=== PATIENT | male | born 1960 | race Hispanic/Latino ===

== ENCOUNTER 2017-03-30 00:16 | Emergency (ER) | payer SELFPAY ==
[~2017-03-30] VITALS: Ht 180.3 cm; Wt 88.5 kg
--- NOTE | 2017-03-30 00:23 | ED AMS/SEIZURE/WEAK/DIZZY ---
History of Present Illness General Chief Complaint: General Adult Stated Complaint: "BIBA PER EMS UNRESPONSIVE" Source: patient Exam Limitations: clinical condition Vital Signs & Intake/Output Vital Signs & Intake/Output Vital Signs Date Time Temp Pulse Resp B/P B/P Pulse O2 O2 Flow FiO2 Mean Ox Delivery Rate 03/30 0502 97.8 81 18 138/63 96 Room Air 03/30 0038 95 Nasal 2.0L Cannula 03/30 0019 97.2 95 18 137/74 93 Room Air Allergies Coded Allergies: No Known Allergies (03/30/17) Reconcile Medications Naloxone HCl (Narcan) 4 MG/ACTUATION SPRAY 1 SPRAY IN X1 PRN OVERDOSE CALL 911 IMMEDIATELY IF SUSPECTED OVERDOSE. Triage Nurses Notes Reviewed? yes Onset: Abrupt Duration: minute(s): Timing: single episode today Injury Environment: home Severity: moderate Modifying Factors: Improves With: medication. Associated Symptoms: hypopnea HPI: 56 yo gentleman presents after hypopnea and cyanosis. Per the medics, "He was found by his sister unresponsive... He was very cyanotic when we got there... .We were about to intubate him, but then we gave narcan 2mg iv and he woke right up." He notes that he got "2 pills... a muscle relaxer... on the street" which he took prior to becoming unresponsive. Past History Travel History Traveled to [place] past 21 day No Medical History Any Pertinent Medical History? see below for history Surgical History Surgical History: unobtainable Family History Hx Contributory? No Review of Systems Review of Systems Constitutional: Reports: no symptoms. EENTM: Reports: no symptoms. Respiratory: Reports: no symptoms. Cardiovascular: Reports: no symptoms. GI: Reports: no symptoms. Genitourinary: Reports: no symptoms. Musculoskeletal: Reports: no symptoms. Skin: Reports: no symptoms. Neurological/Psychological: Reports: no symptoms. Hematologic/Endocrine: Reports: no symptoms. Immunologic/Allergic: Reports: no symptoms. All Other Systems: Reviewed and Negative Physical Exam Physical Exam General Appearance: well developed/nourished, no apparent distress Head: atraumatic, normal appearance Eyes: Bilateral: normal appearance, PERRL, EOMI. Ears, Nose, Throat: normal pharynx, normal ENT inspection, hearing grossly normal Neck: normal inspection, supple, full range of motion Respiratory: normal breath sounds, chest non-tender, no respiratory distress, quiet respiration, lungs clear Cardiovascular: regular rate/rhythm Gastrointestinal: normal bowel sounds, soft, non-tender, no organomegaly Back: normal inspection, normal range of motion Extremities: normal range of motion Neurologic/Psych: no motor/sensory deficits, awake, alert, oriented x 3 Skin: intact, normal color, warm/dry Core Measures ACS in differential dx? No CVA/TIA Diagnosis: No Severe Sepsis Present: No Septic Shock Present: No Progress Differential Diagnosis: OVERDOSE VS SYNCOPE VS OTHER. Plan of Care: Orders Procedure Date/time Status EKG 03/30 55 Active TROPONIN LEVEL 03/30 54 Complete URINE DRUG SCREEN FOR ER ONLY 03/30 50 Complete ETHANOL 03/30 50 Complete COMPREHENSIVE METABOLIC PANEL 03/30 50 Complete CBC WITHOUT DIFFERENTIAL 03/30 50 Complete Laboratory Tests 03/30/17 0218: Urine Opiates Screen > 4000.00 H, Methadone Screen < 40, Barbiturate Screen < 60, Ur Phencyclidine Scrn < 6.00, Amphetamines Screen < 100, U Benzodiazepines Scrn < 85, Urine Cocaine Screen < 50, Urine Cannabis Screen < 5.00 03/30/1754: Troponin I Cancelled 03/30/1753: Anion Gap 13, Estimated GFR > 60, BUN/Creatinine Ratio 21.0, Glucose 179 H, Calcium 8.6, Total Bilirubin 0.3, AST 34, ALT 52, Alkaline Phosphatase 103, Troponin I < 0.01, Total Protein 7.2, Albumin 4.2, Globulin 3.0, Albumin/ Globulin Ratio 1.4, CBC w Diff NO MAN DIFF REQ, RBC 4.84, MCV 83.0, MCH 27.8, RDW 14.0, MPV 8.7, Gran % 53.5, Lymphocytes % 38.0, Monocytes % 6.0, Eosinophils % 2.0, Basophils % 0.5, Absolute Granulocytes 4.7, Absolute Lymphocytes 3.3, Absolute Monocytes 0.5, Absolute Eosinophils 0.2, Absolute Basophils 0, PUBS MCHC 33.5, Serum Alcohol < 10.0 Diagnostic Imaging: Viewed by Me: Radiology Read. Discussed w/RAD: Radiology Read. Initial ED EKG: normal axis, normal intervals, normal p-waves, normal QRS complex, normal sinus rhythm Departure Departure Disposition: HOME OR SELF CARE Condition: Stable Clinical Impression Primary Impression: Opioid overdose Departure Forms: Customer Survey General Discharge Information Prescriptions: Current Visit Scripts Naloxone HCl (Narcan) 1 SPRAY IN X1 PRN OVERDOSE #1 KIT CALL 911 IMMEDIATELY IF SUSPECTED OVERDOSE. Comments 03/30/17, 5:03am.... pt monitored for nearly 5 hours in the ED. He is stable, awake and alert, responding appropriately to questions. He denies SI/HI/ Hallucinations. He would like to go home. I discussed with him the risks of street drugs. I prescribed Narcan for him and instructed him how it should be administered in case of overdose. Pt safe for discharge. 03/30/17, 5:34AM... pt ambulated out ED in company of his sister. Critical Care Note Critical Care Note Critical Care Time: 30-74 min
[2017-03-30] MEDS ORDERED: NARCAN4 MG IN (00:51)
[2017-03-30 01:12] LABS: ABSOLUTE BASOPHIL COUNT 0 /CUMM (0.0-0.2); ABSOLUTE EOSINOPHIL COUNT 0.2 /CUMM (0.0-0.7); ABSOLUTE GRANULOCYTE CT 4.7 /CUMM (1.4-6.5); ABSOLUTE LYMPH COUNT 3.3 /CUMM (1.2-3.4); ABSOLUTE MONOCYTE COUNT 0.5 /CUMM (0.10-0.60); BASOPHIL % 0.5 % (0.0-2.0); GRANULOCYTE % 53.5 % (42.2-75.2); HEMATOCRIT 40.2 % (42-52); MEAN CORPUSCULAR HGB 27.8 PG (27.0-31.0); MEAN CORPUSCULAR HGB CONC 33.5 G/DL (33.0-37.0); MEAN PLATELET VOLUME 8.7 FL (7.4-10.4); PLATELET COUNT 237 /CUMM (130-400); RED BLOOD CELL CT 4.84 /CUMM (4.70-6.10); WHITE BLOOD CELL COUNT 8.7 /CUMM (4.8-10.8)
--- NOTE | 2017-03-30 03:10 | RADIOLOGY REPORT ---
EXAMINATION: XR PORTABLE CHEST CLINICAL INFORMATION: Hypoxia. COMPARISON: No relevant prior imaging. TECHNIQUE: Portable AP semiupright view of the chest was obtained. FINDINGS: Cardiac leads overlie the chest. There is hilar vascular congestion. No evidence of overt interstitial or alveolar edema. The cardiac silhouette and upper mediastinal contours are normal. No acute osseous finding. IMPRESSION: Hilar vascular congestion. Otherwise unremarkable examination with no evidence of overt consolidative disease or effusion.
[2017-03-30 05:02] VITALS: BP 138/63
== END 2017-03-30 05:35 ==
LOC: ERH 00:16
PROVIDERS: Pediatrics
DX: T40.601A Poisoning by unspecified narcotics, accidental (unintentional), initial encounter (principal)
CPT/HCPCS: 80307; 93005; 93010; G0480